=== PATIENT | male | born 1945 | race Caucasian/White ===

== ENCOUNTER 2017-10-09 17:09 | Inpatient (IN) | payer OTHER ==
--- NOTE | 2017-10-09 17:54 | EDPHY ---
H & P Stated Complaint: decreased urine output, confusion per care givers Time Seen by Provider: 10/09/17 17:33 HPI/ROS: CHIEF COMPLAINT: "I'm weak and tired" HISTORY OF PRESENT ILLNESS: The patient is a 72 y/o male with several comorbidities arriving via EMS from an unknown rehabilitation facility complaining of weakness and fatigue for the last 1-2 days. His medical history includes hypertension, diabetes, CHF, chronic UTIs peripheral vascular disease, kidney transplant, and recent aortic valve replacement last month. He does not know why staff at his facility sent him to the ED. He says he can't stand and that his "liver hurts quite a bit." He has some nausea as well. No fever, chills, chest pain, shortness of breath, palpitations, vomiting, diarrhea, urinary complaints, headache, lightheadedness. History from facility staff is not available or known apart from what was told to EMS. REVIEW OF SYSTEMS: Limited due to the patient's skull condition, slight confusion, and poor historian. PAST MEDICAL HISTORY: 1. Hypertension 2. Type II diabetes 3. CHF 4. Peripheral vascular disease 5. Chronic UTIs 6. Aortic valve stenosis 7. Cognitive communication deficit 8. Enterocolitis - C. difficile PAST SURGICAL HISTORY: 1. Kidney transplant 2. Aortic valve replacement 09/10/17 - [facility] in [facility]. SOCIAL HISTORY: Currently staying at unknown rehab facility. Daughter lives in [place]. VITAL SIGNS: Reviewed by me GENERAL: Obese, well-nourished, resting comfortably in no respiratory distress. HEENT: Atraumatic. Eyes: Right eye has conjunctival injection. No icterus. Mouth : dry mucous membranes. No erythema or lesions. Neck: supple with no adenopathy. LUNGS: Clear to auscultation bilaterally, no wheezes, rhonchi or rales. CARDIAC: Distant but regular rate and rhythm, no rubs, murmurs or gallops. ABDOMEN: Multiple bruises along lower abdomen presumably from medication injections. Soft, nontender, nondistended, bowel sounds normal. BACK: No CVA tenderness. EXTREMITIES: No trauma. Trace peripheral edema. Range of motion is normal throughout. NEURO: Alert and oriented x3, but very poor historian. grossly nonfocal. SKIN: Warm and dry, no rash. PSYCHIATRIC: Normal mentation, no agitation. Portions of this note were transcribed by a diagnostic medical sonographer. I personally performed a history, physical exam, medical decision making, and confirmed accuracy of information the transcribed note. - Personal History Current Tetanus Diphtheria and Acellular Pertussis (TDAP): Yes - Medical/Surgical History Hx Asthma: No Hx Chronic Respiratory Disease: No Hx Diabetes: Yes Hx Cardiac Disease: Yes Hx Renal Disease: Yes Hx Cirrhosis: No Hx Alcoholism: No Hx HIV/AIDS: No Hx Splenectomy or Spleen Trauma: No Other PMH: HTN, Type 2 diabetes, kidney transplant, CHF, cognitive communication deficit, dm due to known physiological condition, enterocolitis- r /t C-Diff, PVD, chronic UTI's Aortic Valve stenosis, Heart valve replacement. - Social History Smoking Status: Former smoker Constitutional: Initial Vital Signs Temperature (C) 36.9 C 10/09/17 17:29 Heart Rate 94 10/09/17 17:29 Respiratory Rate 22 H 10/09/17 17:29 Blood Pressure 110/48 L 10/09/17 17:29 O2 Sat (%) 88 L 10/09/17 17:29 O2 Delivery Mode Nasal Cannula O2 (L/minute) 2 Allergies/Adverse Reactions: colchicine Allergy (Verified 10/09/17 17:23) NSAIDS (Non-Steroidal Anti-Inflamma Allergy (Verified 10/09/17 17:23) Home Medications: Medication Instructions Recorded Acetaminophen [Tylenol 325mg (*)] 650 mg PO Q6H PRN 10/09/17 Aspirin EC [Aspirin EC 81 mg (*)] 81 mg PO DAILY 10/09/17 Ipratropium/Albuterol [Duoneb (*)] 3 ml IH Q4H PRN 10/09/17 Losartan Potassium [Cozaar 25 mg 25 mg PO DAILY 10/09/17 (*)] Nystatin Susp [Mycostatin Oral 5 ml PO QID 10/09/17 Liquid] Ondansetron Odt [Zofran Odt 4 mg 4 mg PO Q4H PRN 10/09/17 (*)] QUEtiapine FUMARATE [Seroquel 50 50 mg PO HS 10/09/17 mg (*)] Simethicone [Mylicon] 80 mg PO Q6H PRN 10/09/17 Tacrolimus 0.5 mg PO DAILY 10/09/17 Triamcinolone 0.025% 1 robert TP BID@08,20 10/09/17 [Triamcinolone 0.025% Ointment (*)] traMADol [Ultram 50 mg (*)] 50 mg PO Q6H PRN 10/09/17 Medical Decision Making - Diagnostics EKG Interpretation: 12-LEAD EKG: Please see the full report in Trace Master. My interpretation: Sinus rhythm, right bundle branch and left posterior fascicular block, no ischemic changes Imaging Results: CXR: Impression: Findings consistent with congestive heart failure are noted. Dictated By: Shyam Costa MD CT Abd Pelvis: Impression: 1. Renal transplantation, with marked atrophy of the [place] kidneys. 2. A Mason catheter is in place. 3. Severe arterial calcifications, which may result in flow-limiting stenosis in the iliac vessels. 4. Bilateral pleural effusions and basilar atelectasis/consolidation. 5. Prominent spinal degenerative changes, which may result in spinal canal stenosis. 6. Cholelithiasis, with thickening of the wall of the gallbladder. Cholecystitis cannot be excluded. 7. Enlargement and small pericardial effusion. 8. See above report for additional findings. Results called and discussed with Raina Gleason M.D., on October 09, 2017 at 1934. Dictated By: Shyam Costa MD Imaging: Discussed imaging studies w/ call centre supervisor Radiologist, I viewed and interpreted images myself ED Course/Re-evaluation: This is a 72 y/o male with history of recent valve replacement who presents for 1-2 days of weakness and fatigue. There was some question from the staff that dropped him off that he may have increasing confusion, but he is A&Ox3 here and able to answer most of my questions regarding current symptoms. His abdomen is soft and nontender. He has ecchymosis along his lower abdomen that is likely due to an injected medication. No anticoagulant listed on his med sheet. Plan for IV, labs, UA, flu, EKG, abdominal CT, and chest x-ray. 1L IV NS administered. Mason placed. Patient drained 800mL urine. Creatinine 2.2. Abdominal CT will need to be without contrast. The 12 lead EKG was interpreted by myself. Sinus rhythm with RBBB and LPFB rate 89. See hard copy and/or "tracemaster" electronic copy for interpretation. Chest x-ray shows CHF. Troponin and BNP elevated. 40mg IV Lasix ordered. Procedure: Limited transthoracic echocardiogram. A limited transthoracic echocardiogram was performed and interpreted by myself to evaluate for pericardial effusion. Limited transthoracic echocardiogram: The pericardium was visualized and found to have trace pericardial fluid. The procedure was interpreted and performed by myself, Dr. Gleason. Abdominal CT: large bilateral pleural effusions, CHF, large gallstones, kidney non-obstructed, bad arthrosclerotic disease including both iliacs. Spoke with hospitalist service. Dr. Sauceda accepts admission. Patient's daughter presented emergency department just as the patient was being admitted. I did discuss with her the patient's presentation and our findings thus far. She understands the importance of close observation in the hospital, our concerns regarding the patient's slightly elevated troponin, presumably worsening congestive heart failure, and the potential for a infectious source, especially in this patient who is immunocompromised with kidney transplant. Differential Diagnosis: Differential diagnoses for the patient's symptom complex of weakness and confusion was considered including but not limited to urinary tract infection, urosepsis, pneumonia, influenza, congestive failure, hypoxia, cardiac dysrhythmias, acute coronary syndrome. Consult/Admit Bed Type: Dr. Sauceda, U - Data Points Laboratory Results: Laboratory Results 10/09/17 18:05 10/09/17 18:05 Medications Given: Acetaminophen (Tylenol) 650 mg PO Q4HRS PRN PRN Reason: Pain, Mild/Fever, Can Take PO Stop: 04/07/18 23:16 Last Admin: 10/10/17 21:27 Dose: 650 mg Artificial Tears (Natural Balance Tears) 1 drop EACHEYE Q1HR PRN PRN Reason: Dry Irritated Eyes Stop: 04/08/18 01:42 Last Admin: 10/10/17 18:14 Dose: 1 drop Aspirin Buffered (Aspirin Ec) 81 mg PO DAILY [facility] Stop: 04/08/18 08:59 Last Admin: 10/10/17 11:35 Dose: 81 mg Enoxaparin Sodium (Lovenox) 40 mg SC DAILY [facility] Stop: 04/08/18 14:29 Last Admin: 10/10/17 15:00 Dose: 40 mg Piperacillin/Tazobactam/Dextrose (Zosyn 3.375 Gm (Premix)) 50 mls @ 100 mls/hr IV Q6H [facility] PRN Reason: Protocol Stop: 11/09/17 04:59 Last Admin: 10/10/17 23:04 Dose: 50 mls Sodium Chloride (Ns) 1,000 mls @ 75 mls/hr IV CONT [facility] Stop: 10/12/17 03:34 Last Admin: 10/10/17 22:00 Dose: 1,000 mls Metronidazole (Flagyl) 500 mg PO Q8HRS JEANINE PRN Reason: Protocol Stop: 11/09/17 01:44 Last Admin: 10/10/17 18:03 Dose: 500 mg Nystatin (Mycostatin Oral Liquid) 500,000 unit PO QID [facility] Stop: 04/08/18 01:59 Last Admin: 10/10/17 22:00 Dose: 500,000 unit Ondansetron HCl (Zofran) 4 mg IVP Q4HRS PRN PRN Reason: Nausea/Vomiting, Can't Take PO Stop: 04/07/18 23:16 Last Admin: 10/10/17 14:39 Dose: 4 mg Quetiapine Fumarate (Seroquel) 50 mg PO HS [facility] Stop: 04/08/18 20:59 Last Admin: 10/10/17 21:27 Dose: 50 mg Tacrolimus (Prograf) 0.5 mg PO DAILY [facility] Stop: 04/08/18 08:59 Last Admin: 10/10/17 11:35 Dose: 0.5 mg Tramadol HCl (Ultram) 50 mg PO Q6H PRN PRN Reason: Pain, Moderate Stop: 04/08/18 01:41 Last Admin: 10/10/17 19:43 Dose: 50 mg Triamcinolone (Triamcinolone 0.025%) 1 robert TP BID@08,20 [facility] Stop: 04/08/18 07:59 Last Admin: 10/10/17 23:03 Dose: Not Given Discontinued Medications Furosemide (Lasix Injection) 20 mg IVP ONCE ONE Stop: 10/10/17 01:08 Last Admin: 10/10/17 02:24 Dose: 20 mg Sodium Chloride (Ns) 1,000 mls @ 0 mls/hr IV ONCE ONE; Wide Open PRN Reason: Protocol Stop: 10/09/17 18:09 Last Admin: 10/09/17 18:29 Dose: 1,000 mls Sodium Chloride (Ns) 1,000 mls @ 0 mls/hr IV ONCE ONE PRN Reason: Wide Open Stop: 10/09/17 19:08 Last Admin: 10/09/17 19:08 Dose: 1,000 mls Departure - Departure Disposition: [facility] Inpatient Acute Clinical Impression: Urinary retention, Elevated troponin, Bilateral pleural effusion, Renal insufficiency CHF (congestive heart failure) Qualifiers: Congestive heart failure type: unspecified Congestive heart failure chronicity : unspecified Qualified Code(s): I50.9 - Heart failure, unspecified Condition: Fair Report Scribed for: Raina Gleason Report Scribed by: Emily Shah Date of Report: 10/09/17 Time of Report: 18:03
[2017-10-09] MEDS ORDERED: NS 1,000 ML IV ONE ×2 (18:08→19:07)
[2017-10-09 18:23] LABS: PLATELET COUNT 142 10^3/uL (150-400)
--- NOTE | 2017-10-09 18:32 | CPEKG ---
Heart Rate: 89 RR Interval: 674 P-R Interval: 192 QRSD Interval: 164 QT Interval: 400 QTC Interval: 487 P Highland: 56 QRS Highland: 105 T Wave Highland: -86 EKG Severity - ABNORMAL ECG - EKG Impression: SINUS RHYTHM EKG Impression: RBBB AND LPFB Electronically Signed By: Raina Gleason 09-Oct-2017 21:58:20
[2017-10-09 22:12] LABS: INR 1.17 (0.83-1.16); PROTIME(PATIENT) 15.1 SEC (12.0-15.0)
[2017-10-09] MEDS ORDERED: ACETAMINOPHEN 325 MG TAB PO PRN (23:17)
[2017-10-09] MEDS ORDERED: ONDANSETRON 4 MG/2 ML VIAL IVP PRN (23:17)
[2017-10-10] MEDS ORDERED: FUROSEMIDE 20 MG/2 ML VIAL IVP ONE (01:07)
[2017-10-10] MEDS ORDERED: IPRATROPIUM/ALBUTEROL 3 ML DEYVIAL IH PRN (01:42)
[2017-10-10] MEDS ORDERED: SIMETHICONE 80 MG TAB CHEW PO PRN (01:42)
[2017-10-10] MEDS: NYSTATIN SUSP 500000 UNIT/5 ML UDCUP PO SCH ×6 (02:23→22:00)
[2017-10-10] MEDS: metroNIDAZOLE 500 MG TAB PO SCH ×5 (02:24→23:54)
[2017-10-10 04:45] LABS: INR 1.24 (0.83-1.16); PROTIME(PATIENT) 15.8 SEC (12.0-15.0)
[2017-10-10 04:48] LABS: PLATELET COUNT 119 10^3/uL (150-400)
--- NOTE | 2017-10-10 06:15 | GHP ---
[f rep st] HISTORY AND PHYSICAL DATE OF ADMISSION: 10/09/2017 SOURCE: Patient is a very limited historian with recent history of some confusion. EMR was reviewed and case discussed with accepting provider. The patient's daughter had left for the evening at the time of my interview. CHIEF COMPLAINT: Fatigue, confusion for 1-2 days. HISTORY OF PRESENT ILLNESS: This is a very pleasant 72-year-old gentleman with past medical history significant for CHF, peripheral vascular disease, diabetes type 2, kidney transplant, on immunosuppressive therapy and a recent hospital stay in [place], status post TAVR with subsequent development of C difficile and recurrent UTIs, and diabetes mellitus, who presents to the emergency department from his custodial facility at [facility] with concerns for worsening fatigue and confusion for the past several days. Patient was recently transferred from [place] to [facility] to be closer to his daughter, who lives here in [place]. The patient is originally from [place], and subsequently underwent TAVR. Since that time, has had progressive generalized weakness and poor overall recovery, but in the last 1-2 days has been increasingly confused and worsening generalized weakness and fatigue. The patient does report that he has had some fevers and sweats, but no chills. He has not had any nausea. He denies any shortness of breath. He does report that he has had a cough that is nonproductive. No headache. No chest pain. He has been on Flagyl for his diagnosis of C difficile. He denies any abdominal pain or current diarrhea. The patient denies any sore throat. No current rhinorrhea, some cough, shortness of breath with exertion was reported earlier, but at time of interview, patient denies. On Sunday, patient did have a fever at his facility, but nothing is noted since that time. REVIEW OF SYSTEMS: Negative except as noted in HPI. ALLERGIES: Colchicine and NSAIDs. HOME MEDICATIONS: As per [facility] med rec, Zofran ODT 4 mg p.o. q.4 hours p.r.n., aspirin 81 mg p.o. daily, Tylenol 650 mg p.o. q.6 hours p.r.n., tramadol 50 mg p.o. q.6 p.r.n., simethicone 80 mg p.o. q.6 hours p.r.n., DuoNeb 3 mL inhaled q.4 hours p.r.n., nystatin oral liquid 5 mL p.o. q.i.d., Triamcinolone 0.025 topical ointment twice daily, tacrolimus 0.5 mg p.o. daily, Seroquel 5 mg p.o. at h.s., losartan 25 mg p.o. daily. PAST MEDICAL HISTORY: Significant for a kidney transplant on immunosuppressive therapy with tacrolimus, TAVR on 09/12/2017, CHF, NOS, UTIs, PVD, diabetes type 2, history of recent C difficile on Flagyl. PAST SURGICAL HISTORY: Significant for kidney transplant, TAVR, and back surgery. FAMILY HISTORY: Older brother in his 80s with sudden . Mother also in her 80s with sudden . SOCIAL HISTORY: Patient is currently in [facility], moved from [place] to [place] for TAVR with subsequent transfer for rehab in [place] where patient's daughter resides. Patient quit smoking some time ago. He does not drink or do drugs. CODE STATUS: At this time is full. Given patient's confusion and no MOLST form accompanying the patient, we will have to wait until we further discuss with patient's daughter. PHYSICAL EXAMINATION: VITAL SIGNS: Upon arrival, blood pressure 110/48, heart rate 94, respiratory rate 22, O2 sat 88% on room air with a temperature of 36.9. Vitals available at the time of interview, blood pressure 117/56, heart rate was 88, respiratory rate 16, O2 sat is 97% on 3 L by nasal cannula with a temperature of 36.6. GENERAL: No acute distress, pleasant, frail, chronically ill-appearing gentleman, appears older than stated age, who is lying quietly in bed. Overall, patient does appear to be generally deconditioned. He is quite edematous in all his extremities, abdomen and scrotum. SKIN: The patient does have some slight ulcerated macerated skin located surrounding his coccyx. His skin otherwise appears to be intact with occasional bruising on his upper extremities. ENT: Mucous membranes appear dry. Dentition fair. No oropharyngeal erythema or exudate appreciated. EYES: Without any scleral icterus or conjunctival injection, decreased reactivity to light bilaterally in the pupils. Extraocular muscles grossly intact. Patient with some difficulty following instructions. CV: Regular rate and rhythm. Very distant heart sounds, but regular. Limited exam to appreciate any murmurs secondary to distant heart sounds. RESPIRATORY: Unlabored breathing, significantly diminished bibasilarly. No rhonchi or wheezing appreciated. ABDOMEN: Obese, soft. Patient without any tenderness to palpation. No rebound, guarding or masses. : Patient with significant scrotal edema bilaterally. A Mason catheter is in place. EXTREMITIES: Patient with 2 to 3+ pitting edema bilateral lower and upper extremities. Patient with obese abdomen and scrotal edema. He has generalized weakness with limited abilities to lift his lower or upper extremity significantly. NEURO: Grossly nonfocal. Moves all extremities with generalized deconditioning, weakness. No facial drooping. No other focal findings. PSYCH: Patient with some confusion. The patient is oriented to person and place, but he is overall a very poor historian. He is not totally aware of all his medical issues, and is unsure of why he is currently in the hospital. LABORATORY STUDIES: WBC 4.54, H and H is 9.6 and 31.4, MCV of 92.4, platelet count is 142. PT is 15.1, INR is 1.17, PTT is 36.0. Lactic acid 2.6, decreased to 1.2. Sodium is 130, potassium is 4.5, chloride 96, CO2 is 22, anion gap 12, BUN 67, creatinine is 1.9, GFR of 35, glucose 189, calcium is 8.1, total bilirubin 0.5. ALT 727, AST is 19, alkaline phosphatase is 58. Troponin 0.056, repeated is 0.051 with a normal CK and CK-MB. BTNP is 3550. Total protein is 4.5, albumin is 2.3, lipase 396. TSH is 4.86 and procalcitonin 0.21. UA with specific gravity of 1.014, pH of 5.0, 1+ blood, trace leuk esterase, hyaline casts 50-182 , noted 1-3 of WBCs. Flu PCR is negative for A and B. EKG reviewed myself shows normal sinus rhythm in the 80s with a right bundle branch block. QTc is 487. Chest x-ray: Image report reviewed myself showing cardiomegaly and pulmonary venous congestion. Perihilar opacities and postop changes of valvular replacement. Bilateral pleural effusions. Degenerative changes in the spine. CT abdomen pelvis, status post renal transplant and atrophied [place] kidneys. Severe arterial calcifications in the iliac vessels. Bilateral pleural effusions. Basilar atelectasis and consolidation. Prominent spinal degenerative changes. Cholelithiasis with thickening of the wall of the gallbladder, cholecystitis cannot be excluded. Small pericardial effusion. ASSESSMENT AND PLAN: Pleasant 72-year-old gentleman with past medical history of multiple medical issues including diabetes with history of kidney disease status post transplant on immunosuppressive therapy, status post a recent transcatheter aortic valve replacement in August, heart failure, known pleural effusions, peripheral vascular disease, and recent development of Clostridium difficile on Flagyl, who presents to the emergency department with complaints of progressive fatigue, confusion for the last several days along with a cough and shortness of breath. 1. Congestive heart failure, not otherwise specified, decompensated with pleural effusion, significant edema and nearly anasarca. Patient's initial concern was for infectious process ongoing. He did receive 2 L of IV fluid in the emergency department. Now, will try to diurese effectively while monitoring renal function closely. Echocardiogram was obtained stat for pericardial effusion. There is no evidence of tamponade. Will monitor closely and continue diuresis. 2. Confusion/altered mental status, baseline mentation is unknown at this time , possibly related to encephalopathy either from decompensated congestive heart failure, hypoxia, infectious process. Will need to further discuss with daughter if patient with any known history of memory decline, but appears that this is more acute in nature. Overall patient is a poor historian. 3. Generalized weakness and debility. Physical therapy/occupational therapy consultation. Diuresis as above. Antibiotic coverage as noted below. also noting gallbladder thickening cannot r/o cholecystitis on CT. check RUQ US. neg Jon's sign. 4. Hypoxia. The patient does have bilateral pleural effusions, not surprising status post a transcatheter aortic valve replacement , but he is also significantly elevated, likely related to patient's congestive heart failure for which he is getting diuresed. The patient is requiring currently some supplemental oxygen. We will continue with diuresis. Repeat chest x-ray in the morning and titrate oxygen as tolerated. 5. Bilateral pleural effusions. Suspect related to congestive heart failure versus pneumonia. The patient did order procalcitonin, which is slightly elevated. Patient without a white count, however, he is immunocompromised on tacrolimus for history of renal transplant. We will go ahead and initiate antibiotic therapy with Zosyn pending blood cultures. 6. Pericardial effusion is small. No evidence of tamponade. Echocardiogram report is pending as above. 7. Elevated troponin is likely related to patient's congestive heart failure exacerbation, serial cardiac enzymes and EKG. Patient denies any chest pain at this time. Will monitor on telemetry. 8. Hypoalbuminemia, secondary to congestive heart failure and patient's chronic medical status. We will continue to monitor. 9. Anasarca. Continue Lasix. Patient may benefit from albumin, followed by Lasix during his stay, at this time monitor acutely. 10. Acute kidney injury. Patient's baseline is unknown at this time. Patient' s daughter may have some outside records available. We will try to obtain from [place] with recent transcatheter aortic valve replacement .. 11. Hypochloridemia, mild in setting of hyponatremia. 12. Hyponatremia secondary to hypervolemia with patient's extensive edema and congestive heart failure exacerbation. Will monitor with diuresis. 13. Hypocalcemia appears to correct for hypoalbuminemia. We will monitor closely. 14. Elevated lactate has normalized. The patient is status post 2 L of IV fluid. Suspect there is increased stress in setting of congestive heart failure and hypoxia with the development of bilateral pleural effusions. 15. Anemia, status post transcatheter aortic valve replacement . Patient's baseline is unknown. He does not appear to have any active bleeding. Will monitor hemoglobin and hematocrit at this time. Blood pressures are acceptable. 16. Thrombocytopenia, likely related to patient's chronic and acute illness. At this time, will monitor closely. The patient is high risk for pulmonary embolism, deep venous thrombosis. He will receive prophylactic dosing and will need to monitor platelet count closely. 17. Abnormal urinalysis with leukocytosis without any bacteria noted. However , patient is immunosuppressed. We will plan to send that for culture. 18. Urinary retention. The patient did require placement of Mason catheter. He will be diuresed. Will monitor ins and outs closely, and he will be placed on fluid restriction as above. 19. Fluid, electrolyte, nutrition. Cardiac diet with low sodium. The patient will be saline locked. No further IV fluids at this time. Electrolytes will be monitored and replaced as needed. 20. Prophylaxis. Patient with bilateral lower extremity edema. Sequential compression devices if tolerated and Lovenox has been ordered as noted above. 21. Code status is full at this time. We will need to further discuss when patient's daughter is available. 22. Disposition. Patient has been admitted to telemetry unit inpatient status. Anticipate greater than 2 midnights stay in setting of patient's multiple medical issues, complications, and significant debility. /[id number]/MODL MTDD
[2017-10-10] MEDS: PIPERACILLIN/TAZO 3.375 GM/DEX 50 ML IV SCH ×4 (06:32→23:04)
--- NOTE | 2017-10-10 08:11 | ECHO ---
[email or web address] [address] Main: [phone] Fax: Transthoracic Echocardiogram Name: SANKET DIGGS MR#: [id number] Study Date: 10/09/2017 Study Time: 08:18 PM Date of : 1945 Age: 72 year(s) Height: 175.3 cm (69 in.) Weight: 91.63 kg (202 lb.) BSA: 2.07 m2 Gender: Male Examination: Echo Indication: S/P recent minimally invasive AVR, no CABG, done in outside hospital, confusion and elevated troponin Image Quality: Technically Difficult Contrast: Requested by: Raina Gleason BP: 126 mmHg/62 mmHg Heart Rate: Rhythm: Indication: S/P recent minimally invasive AVR, no CABG, done in outside hospital, confusion and elevated troponin Procedure Staff Loading Dock Helper: Izabela Crouch Reading Physician: Elan Koo Requesting Provider: Conclusions: Moderate concentric LV hypertrophy. Low normal left ventricular systolic function. The ejection fraction is estimated to be 50-55 %. There is moderate thickening of the mitral valve leaflets. Moderate-severe mitral annular calcification. Mild mitral valve stenosis is present. The aortic valve is a bioprosthesis. Prosthetic aortic valve gradients are within normal limits. No prosthesis regurgitation. Measurements: Chambers Valvular Assessment AV/MV Valvular Assessment TV/PV Normal Normal Normal Name Value Range Name Value Range Name Value Range Ao Guerita (MM): 3.3 cm (2.2 cm-3.7 AV Vmax: 2.07 m/s (1 m/s-1.7 PV Vmax: 1.17 m/s (0.6 m/s-0.9 cm) m/s) m/s) IVSd (2D): 1.5 cm (0.6 cm-1.1 AV maxP mmHg ( - ) PV PGmax: 5 mmHg ( - ) cm) AV meanP mmHg ( - ) LVDd (2D): 5.0 cm (4.2 cm-5.9 LVOT Vmax: 0.99 m/s (0.7 m/s-1.1 cm) m/s) LVDs (2D): 3.4 cm (2.1 cm-4 MV maxP mmHg ( - ) cm) MV meanP mmHg ( - ) LVPWd (2D): 1.4 cm (0.6 cm-1 cm) EF Range: 50-55 % RVDd(2D): 3.8 cm (1.9 cm-3.8 cmmm) Continued Measurements: Patient: SANKET DIGGS Study Date: 10/09/2017 Page 1 of 2 08:18 PM Valvular Assessment AV/MV Name Value MV VTI: 45.20 cm Findings: Left Ventricle: Normal size left ventricle. Moderate concentric LV hypertrophy. Low normal left ventricular systolic function. The ejection fraction is estimated to be 50-55 %. Right Ventricle: Normal size right ventricle. Normal RV function. Left Atrium: The left atrium is mildly dilated. Right Atrium: The right atrium is normal in size. Mitral Valve: There is moderate thickening of the mitral valve leaflets. Moderate-severe mitral annular calcification. Mild mitral valve stenosis is present. Trivial mitral valve regurgitation. Aortic Valve: The aortic valve is a bioprosthesis. The prosthetic aortic valve is normal. Prosthetic aortic valve gradients are within normal limits. No prosthesis regurgitation. Tricuspid Valve: The tricuspid valve appears normal. Trivial tricuspid valve regurgitation. Pulmonary artery pressure is not obtained due to inadequate TR jet. Pulmonic Valve: Pulmonary valve not well visualized. Aorta: Normal size aortic root measuring 3.3 cm. IVC: The IVC is normal sized. Pericardium: No pericardial effusion. (No Signature Object) Patient: SANKET DIGGS Study Date: 10/09/2017 Page 2 of 2 08:18 PM [id number]
[2017-10-10] MEDS ORDERED: LOSARTAN POTASSIUM 25 MG TAB PO SCH (09:00)
--- NOTE | 2017-10-10 10:04 | ASMTCASEMG ---
Living Arrangements What is your living Answers: With Child(gracie) arrangement? Who do you live with? Type Of Residence What kind of residence do Answers: [facility] Facility you live in? Type of Residence Facility Name Notes: [facility] Discharge Plan Comments Coordination Status Comments Notes: Pt is a 72 y/o man admitted for fatigue and confusion for 1-2 days. Pt is a post TAVR after a recent hospitalization in [place]. Pt came to [place] to be closer to his daughter. Pt is currently rehabing at [facility]. Therapies have been ordered. Pt will most likely return to [facility]. CM to follow. Plan: [facility] Date Signed: 10/10/2017 10:03 AM Electronically Signed By:BARBARA Dailey
[2017-10-10] MEDS: TACROLIMUS ANHYDROUS 0.5 MG CAP PO SCH (11:35)
[2017-10-10] MEDS: ASPIRIN EC 81 MG TAB PO SCH (11:35)
[2017-10-10] MEDS: TEARS/DEXTRAN 70/HYPROMELLOSE 15 ML OPHT.BTL EACHEYE PRN ×3 (11:45→18:14)
--- NOTE | 2017-10-10 12:16 | PDMN ---
Medical Necessity Medical necessity: Pt meets IP criteria per MD; est los >2 mn for eval/tx of CHF decompensated w/ bilateral pleural effusions, edema, anasarca, altered mental status, significant debility/weakness, hypoxia, acute kidney injury, elevated troponin/abnormal labs & abnormal urinalysis; admit for further workup/ close monitoring, diuresis, IV abx & therapies; hx recent TAVR w/subsequent CDIFF, UTIs, CHF, PVD, diabetes & kidney transplant on immunosuppressive therapy ; per H&P & order 10/09/17
--- NOTE | 2017-10-10 13:24 | WOCRNPDOC ---
WOCRN Advanced Assessment Note - Skin Integrity Problem, Advanced Assess Left Sacrum Proximal Pressure Injury Dressing Type: Allevyn Life Dressing Description: Clean/Dry, Intact Exudate Amount: Scant Exudate Characteristic(s): Serosanguinous Integumentary Issue Intervention: Visualized Under Dressing Wound Bed Constitution: Red/[place] - Non Granular Tissue Site Measurement - Head-to-Toe Length X Width X Depth (cm): 1x1x0.3 Pressure Injury Stage: Stage 3 Pressure Injury Present on Admit: Yes Left Distal Sacrum Pressure Injury Dressing Type: Allevyn Life Dressing Description: Clean/Dry, Intact Integumentary Issue Intervention: Visualized Under Dressing Site Measurement - Head-to-Toe Length X Width X Depth (cm): 0.5x1x0.2 Pressure Injury Stage: Stage 3 Pressure Injury Present on Admit: Yes Right Sacrum Pressure Injury Dressing Type: Allevyn Life Dressing Description: Clean/Dry, Intact Exudate Amount: Minimal Exudate Characteristic(s): Serosanguinous Integumentary Issue Intervention: Visualized Under Dressing Rosa Wound Tissue: Erythema, Macerated (severe ) Rosa Wound Swelling: Mild Wound Bed Constitution: Granulation Tissue (50%), Red/[place] - Non Granular Tissue (50%) Wound Edges: Irregular, Thick Site Measurement - Head-to-Toe Length X Width X Depth (cm): 4.5x1.5x0.3 Pressure Injury Stage: Stage 3 Pressure Injury Present on Admit: Yes Skin Integrity Problem Comment: Breakdown from friction/moisture and pressure. Likely from recliner. Discussed pressure injury causes and treatment with daughter. Will try aquacel dressing for sacrum to reduce moisture breakdown of rosa wound skin.
--- NOTE | 2017-10-10 14:18 | HOSPPROG ---
Hospitalist Progress Note Assessment/Plan: New patient encounter Notified of pt's BP in the 80's systolic No Fever The pt is a very poor historian Mason in place and there is concentrated urine in the bag PC: 0.21 #?Sepsis, unclear source, ?Pneumonia vs ?UTI -No leukocytosis -mild elevation of procalcitonin in setting of renal impairment #Hx of CHF, recent TAVR, small pericardial effusion -reportedly in exacerbation on admission, but I don't see e/o this, looks very dry #Acute Renal Failure -unknown baseline #Immunosuppression #Hyponatremia #Kidney transplant #Recent C-Diff colitis, no active diarrhea -On Flagyl #DMII, NIDDM #cholelithiasis and thickened GB on CT. -RUQ US pending -Negative hutchins's and negative exam #Thrombocytopenia #Coccygeal wound #Acute on chronic encephalopathy Plan: -Stat IV Bolus now and will determine clinical response -Cont Zosyn which was started on 10/09. May need additional coverage pending clinical course. -Will consult Cardiology -Tacrolimus was continued on admission. Will consult Nephrology -Urine studies -Wound care -Palliative care consult -[facility] -Full code for now, although daughter thinks he is a DNR. She is obtaining records total critical care time is 45 minutes including coordination with nursing and the pt's daughter. Subjective: confused. Denies SOB, denies CP. Denies pain. Answers yes and no questions Objective: Vital Signs Temp Pulse Resp BP Pulse Ox 36.9 C 99 22 H 120/47 L 90 L 10/10/17 11:46 10/10/17 13:10 10/10/17 13:10 10/10/17 13:10 10/10/17 13:10 Laboratory Results 10/10/17 03:35 10/10/17 03:35 10/09/17 10/10/17 10/11/17 05:59 05:59 05:59 Intake Total 2075 150 Output Total 900 Balance 2075 -750 PT 15.8 SEC (12.0-15.0) H 10/10/17 03:35 INR 1.24 (0.83-1.16) H 10/10/17 03:35 - Physical Exam Constitutional: no apparent distress Eyes: PERRL, EOMI Ears, Nose, Mouth, Throat: moist mucous membranes, dry mucous membranes Cardiovascular: edema (trace) Respiratory: reduced air movement Gastrointestinal: normoactive bowel sounds, soft, non-tender abdomen Genitourinary: no bladder fullness Skin: warm Musculoskeletal: generalized weakness Neurologic: No AAOx3 Psychiatric: encephalopathic, anxious, poor insight, No interacting appropriately, No not anxious, No not encephalopathic, No thought process linear Lymph, Heme, Immunologic: No petechiae ICD10 Worksheet Patient Problems: Problems Problem Status Onset Bilateral pleural effusion Acute CHF (congestive heart failure) Acute Elevated troponin Acute Renal insufficiency Acute Urinary retention Acute chronic disease mgmt/transitional Acute
[2017-10-10] MEDS: ENOXAPARIN 40 MG/0.4 ML SYR SC SCH (15:00)
--- NOTE | 2017-10-10 15:19 | ASMTCMCOM ---
CM Note CM Note Notes: CM met w/ daughter, Adri and discuss d/c POC. Adri would like pt to return back to [facility]. Adri reports that they are in the process of applying for LTC Medicaid. Adri reports that the [place] [facility] is to have pt at [facility]. CM spoke w/ Subha at [facility] and pt is able to return when medically stable. CM sent updates to [facility]. CM left a msg w/ Caitlyn, social work job titles at [facility] and inquired about LTC Medicaid application process. CM spoke w/ Caitlyn and she reports that Adri is in the process of completing LTC Medicaid application. CM requested [employer] to assist in completing the LTC Medicaid application. Palliative has been ordered. CM to follow. Date Signed: 10/10/2017 03:18 PM Electronically Signed By:BARBARA Dailey
--- NOTE | 2017-10-10 18:08 | GCON ---
[f rep st] CONSULTATION CHIEF COMPLAINT: Weakness. HISTORY OF PRESENT ILLNESS: The patient was admitted to the hospital last night in transfer from a [facility]. He had the misfortune of being in a custodial after a recent aortic valve replacement that was don e percutaneously and they thought that he was being somewhat confused, he was more tired and they bro ught him in here to be evaluated. He has many major cardiovascular, renal and metabolic issues. He has been at [facility] since he had a TAVR in [place] in the middle part of August. He has been weak. He has been tired. He cannot get up out of bed. He has severe bedsores that are ve ry painful on his coccyx. He says he does not have chest pain or shortness of breath. He does say that he has a phlegm product alan type cough. He denies nausea, vomiting, diarrhea, or constipation. He lies flat and does not wake up short of br eath at night. He has peripheral edema that is significant but it is markedly decreased from prior t o his TAVR. He feels very, very tired. He has not had trouble with his vision at this time. He is not lighthead ed or dizzy. Does not have pleuritic chest pain. He has known cardiac risk factors of hypertension, diabetes mellitus, hyperuricemia, and obesity. He has no family history of coronary artery disease that is premature. He has no history of coronary artery disease himself. He has no history of hyperlipidemia, according to him. FAMILY HISTORY: He has no family history of premature coronary disease. No family history of unexpl ained sudden at a young age. REVIEW OF SYSTEMS: A 10-point review of systems negative except as noted above in the chart and on t he record. The patient has a history of hypertension, diabetes mellitus, renal failure, transplant o f a kidney, hyperuricemia, obesity, fatigue, C difficile, history of CHF prior to the TAVR. ALLERGIES: Nonsteroidals and colchicine. MEDICATIONS: Seroquel, triamcinolone, losartan, nystatin, Tylenol, tramadol, simethicone, aspirin, Z ofran. The patient had a kidney transplant and he is on immunosuppressive therapy with tacrolimus. He has a history of a TAVR 09/12/2017. He has had multiple urinary tract infections since then. PAST SURGICAL HISTORY: 1. Status post kidney transplant. 2. Status post TAVR. 3. Status post back surgery. SOCIAL HISTORY: The gentleman lives in [place], [place]. He has been in [place] for 12 years. 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 He does not smoke. He does not drink significant amounts of alcohol. After his TAVR, he went to [facility] and that is why he is transferred to [facility] . He was born in [place], [place]. He has recently done work in [employer] for [employer]. He lives alone. He has been in [place] for 12 years and he is down in [place]. He does not sm sumi, does not drink significant amounts of alcohol. PHYSICAL EXAMINATION: VITAL SIGNS: Blood pressure 105/70, heart rate 66, respiratory rate 14. HEEN T: Pupils equal and reactive. Mucous membranes of the mouth moist. NECK: Supple. CARDIOVASCULAR: S1, S2. Soft systolic murmur in the left sternal border. No diastolic murmur. No S3, no S4. No rubs. PULMONARY: Rhonchi, decreased breath sounds bilaterally and increased AP diameter. ABDOMEN: Soft, nontender without masses. Sacrum with ulcers that are described. EXTREMITIES: He has 2+ alejandrina ma bilaterally to the mid calves and this is nontender. SKIN: Pallor and age-related changes. PSYC H: No obvious anxiety or depression. LABORATORY DATA: Sodium 130, potassium 4.5, chloride 96, CO2 22, creatinine 1.9. TSH 4.8. Sinus rhythm, right bundle branch block on his EKG. He did have a chest CT of the abdomen and pelvis, which showed status post renal transplant and atrop hy to [place] kidney, severe arterial calcifications in the iliac vessels, bilateral effusions, bibasi lar atelectasis and consolidation, prominent spinal degenerative changes, cholelithiasis with thicken ing of the wall of the gallbladder, cholecystitis cannot be excluded, small pericardial effusion. ASSESSMENT AND PLAN: 1. Status post transcatheter aortic valve replacement (TAVR). His valve appears to be working well and will get an echocardiogram and follow this closely. There is nothing to suggest he has developed endocarditis, nothing to suggest severe insufficiency or anything but excellent performance from his valve. 2. Hypoxia. 3. Pleural effusions. 4. Pericardial effusion. 5. Anasarca. 6. Peripheral edema. I think that the patient is clearly showing that he has both significant pulmonary and cardiovascular issues at this time. We will check for his valve and make sure it is functioning well. He did have an elevation of troponin and that may well be just from his fluid overload at this time. He has some anasarca. He is on Lasix. He has significant peripheral edema. He is on Lasix and will follow that carefully. He has anemia and thrombocytopenia. He has had problems with urinary retention in the past. We will watch for this. He has had an acute kidney injury at this point and we are just going to have to watch him carefully for that. In summary, will make sure that his valve seems to be working. Why he is so tired and fatigued, I do not have a clear answer. I do not think it is endocarditis at this time. I do not think it is a si gnificant deterioration of his valvular or left ventricular function. /[id number]/MODL
[2017-10-10] MEDS: traMADol 50 MG TAB PO PRN (19:43)
--- NOTE | 2017-10-10 21:24 | GCON ---
[f rep st] CONSULTATION INFECTIOUS DISEASE CONSULTATION DATE OF CONSULTATION: 10/10/2017 REFERRING PHYSICIAN: Medhat Kingston MD REQUESTING PROVIDER: Medhat Kingston MD. REASON FOR CONSULTATION: Possible sepsis. HISTORY OF PRESENT ILLNESS: The patient is a 72-year-old male with a past medical history of renal t ransplantation in 2004, type 2 diabetes mellitus, and recent TAVR in [place]. I am asked to see him in consultation for possible sepsis. The patient underwent TAVR in [place] on . His daughter describes that he had a prolonged ICU course of approximately 2 weeks requir ing mechanical ventilation. His hospital course was also complicated by development of C. difficile colitis and urinary tract infection. He subsequently has been discharged to [facility] for [facility], given this is closer to his daughter who lives in [place]. The patient reportedly developed a fever yesterday to 100.3 at his shelter facility. This was associated with increased confus ion and lethargy. The patient describes having some lower abdominal pain, which he notes has been pr esent since the time of his recent surgery. He does have some underlying cough, but does not note sh ortness of breath. He denies any active nausea, vomiting, or diarrhea, although notes he had 1 day o f vomiting at his shelter facility recently. He has not noted any skin rash. He does have s ome sacral skin breakdown present. He also has been noted to have a left heel ulceration. At the ti me of presentation, patient was noted to have a white blood cell count of 4.5 without significant lef t shift. The patient was started empirically on Zosyn given the presence of fever and unclear etiolo gy for symptomatology. He has been maintained on oral metronidazole, which he was receiving for C. d ifficile. Earlier today, the patient was noted to have some hypotension prompting additional concern s for sepsis with systolic blood pressures transiently in the 80 range. These have now all resolved. The patient's daughter notes that with prior urinary tract infections he typically becomes signific antly confused and has additional symptoms, such as hallucinations, which have not been present. His daughter notes that at [facility] he did not have an indwelling Mason catheter, but required this to be placed upon hospitalization. Testing for influenza was negative. Given the above findings, I am now asked to assist in his ongoing management. PAST MEDICAL HISTORY: Renal transplantation in 2004, which was performed in [place]; reason for gracie al failure, diabetes mellitus, peripheral vascular disease, urinary tract infection, congestive heart failure, and C. difficile colitis as outlined above. PAST SURGICAL HISTORY: Kidney transplant as above, TAVR, and prior back surgery. CURRENT MEDICATIONS: Zosyn 3.375 g intravenously q.6 hours, DuoNeb q.4 hours as needed, aspirin 81 m g p.o. daily, Lovenox 40 mg subcutaneously daily, metronidazole 500 mg orally q.8 hours, nystatin ora lly 4 times daily, Seroquel 50 mg p.o. at bedtime, tacrolimus 0.5 mg p.o. daily, Ultram 50 mg p.o. q. 6 hours as needed, and triamcinolone cream. ALLERGIES: No known drug allergies, although medical record list colchicine and nonsteroidal agents (query if these are avoided because of renal transplantation). SOCIAL HISTORY: Patient currently is a resident of [facility]. Recent relocation from [facility]. For vanessa smoker. No alcohol or drug use. REVIEW OF SYSTEMS: Outside that noted in the HPI, the remainder of a 10-system review was unremarkab le except for chronic lower extremity edema, chronic right eyelid eversion with erythema, and decubit us ulcers as noted above. PHYSICAL EXAMINATION: VITAL SIGNS: Temperature 36.9, heart rate 98, respiratory rate 26, blood pres sure 130/60, oxygen saturation 96% on 2.5 L. GENERAL: Patient is an obese male in no acute distress . He appears nontoxic. HEENT: There is no scleral icterus or conjunctival petechiae. The right lo wer conjunctival lid is everted with erythema. There is no drainage. There is no nasal discharge. There is no tenderness over the frontal maxillary or mastoid area. NECK: Supple without palpable ly mphadenopathy or thyromegaly. CHEST: Clear to auscultation bilaterally without adventitious sounds. Respiratory effort is normal. CARDIOVASCULAR: Distant heart tones. Surgical scar in left upper c hest shows no erythema or drainage. No audible murmurs are noted. ABDOMEN: Obese, nontender, nondi stended. Bowel sounds are present. MUSCULOSKELETAL: There is 2 to 3+ lower extremity edema bilater ally. Right inguinal region shows a well-healed scar. The hands show changes of gouty arthropathy. SKIN: There is an erythematous plaque with some hyperpigmentation present in the right lower quadran t of the abdomen, as well as ecchymosis in the right inguinal region; 2 discrete sacral decubitus ulc ers are present in the sacral region without surrounding cellulitis or drainage. There are no stigma ta of endocarditis. : Mason catheter is in place. LYMPHATICS: No cervical, supraclavicular or i nguinal nodes palpable. NEUROLOGIC: Patient is alert and interacts appropriately with the examiner. Cranial nerves 2-12 are grossly intact. Sensation is grossly intact. Muscle tone and bulk are nor mal. LABORATORY DATA: White blood cell count 3.9, hematocrit 29.5, platelets 119, neutrophils 61%, lympho cytes 30%. Serum creatinine is 1.7, albumin 2.1, AST 18, ALT 29, alkaline phosphatase 50, bilirubin 0.6, procalcitonin 0.19, TSH 4.9. INR is 1.2. Venous lactate is 1.2. Urinalysis shows 1-3 red bloo d cells and 1-3 white blood cells. Influenza testing by PCR is negative. Blood cultures x2 and urin e culture are pending. CT scan of the abdomen and pelvis show findings consistent with renal transplantation; bilateral pleu ral effusion with basilar atelectasis present. Small pericardial effusion noted. Cholelithiasis wit h gallbladder thickening also present. Abdominal ultrasound shows cholelithiasis with borderline gallbladder wall thickening. Chest x-ray shows changes suggesting congestive heart failure. Echocardiogram shows normal-appearing prosthetic aortic valve with no regurgitation. IMPRESSION: 1. Fever with transient hypotension: Possible clinical findings are due to sepsis, although hypoten elziabeth was transient in nature. Given recent complex medical history, nosocomial processes are of cons ideration. It is possible he had a viral gastroenteritis while at his shelter facility and s ubsequently developed dehydration to account for some of his symptomatology. Urinalysis shows limite d leukocytes, and the patient denies any symptoms of urinary tract infection. Basilar changes in the lungs appear more consistent with compressive atelectasis from pleural effusions than with pneumonia . Given his recent valve surgery, endocarditis is a consideration, although echocardiogram shows no overt abnormalities. Blood cultures are pending to further assess this possibility. 2. Recent Clostridium difficile colitis: No symptoms of active Clostridium difficile on oral metron idazole. Contact precautions will be continued. RECOMMENDATIONS: 1. We will continue empiric Zosyn until blood cultures are more mature. We will decrease to 2.25 g intravenously q.6 hours. 2. Follow up blood and urine culture as available. 3. Follow clinical response to above measures. 4. Continue metronidazole pending further record review, as this may be able to transition to suppre ssive dosing while on antibiotics at twice daily dosing. Of note, would more typically use oral vanc omycin, but will not change at this point in time, given clinical response. Thank you for this consultation. We will continue to follow the patient with you. /[id number]/MODL
[2017-10-10] MEDS: QUEtiapine FUMARATE 50 MG TAB PO SCH (21:27)
[2017-10-10] MEDS: TRIAMCINOLONE 0.025% 15 GM OINTTUBE TP SCH ×2 (22:00→23:03)
[2017-10-10] MEDS: NS 1,000 ML IV SCH (22:00)
[2017-10-11] MEDS: traMADol 50 MG TAB PO PRN ×4 (01:36→23:57)
[2017-10-11] MEDS: PIPERACILLIN/TAZO 3.375 GM/DEX 50 ML IV SCH ×2 (05:29→10:46)
[2017-10-11 05:53] LABS: PLATELET COUNT 121 10^3/uL (150-400)
[2017-10-11] MEDS: metroNIDAZOLE 500 MG TAB PO SCH ×3 (06:26→23:58)
[2017-10-11] MEDS: NYSTATIN SUSP 500000 UNIT/5 ML UDCUP PO SCH ×4 (06:45→23:59)
[2017-10-11] MEDS: predniSONE 10 MG TAB PO SCH (09:57)
[2017-10-11] MEDS: ASPIRIN EC 81 MG TAB PO SCH (09:57)
[2017-10-11] MEDS: TACROLIMUS ANHYDROUS 0.5 MG CAP PO SCH (09:57)
[2017-10-11] MEDS: ENOXAPARIN 40 MG/0.4 ML SYR SC SCH (09:57)
[2017-10-11] MEDS: TRIAMCINOLONE 0.025% 15 GM OINTTUBE TP SCH ×2 (10:07→23:59)
--- NOTE | 2017-10-11 10:40 | GCON ---
[f rep st] CONSULTATION DATE OF CONSULTATION: 10/11/2017 REASON FOR CONSULTATION: Opinion regarding acute kidney injury in a patient with kidney transplant. HISTORY OF PRESENT ILLNESS: The patient is a very pleasant 72-year-old gentleman with end-stage kidn ey failure, presumed due to diabetes mellitus type 2 and hypertension. The patient underwent a live donor kidney transplant about 11 years ago and has been doing well subsequently. However, over the c ourse of the past year or so, he has had increasing fatigue and shortness of breath. He was noted to have aortic valve disease and underwent TAVR in August of 2017. Post TAVR, he moved from [place], [place] to [place] to be closer to his daughter. Over the course of the past couple of days, the p atient complained of weakness and fatigue. He presented to the emergency department on 10/09/2017 wi th the aforementioned complaints. He has been having some difficulties with diarrhea due to Clostrid ium difficile in the recent past. The patient says he is feeling a bit better but still feels weak. He is not having fevers, chills, nausea, vomiting, chest pain, shortness of breath, cough, sputum pr oduction, hemoptysis, hematemesis, epistaxis, blurry vision, double vision, headache, orthopnea, paro xysmal nocturnal dyspnea, palpitations, syncope. He says he does have some difficulty maintaining hi s balance, and he is having some abdominal discomfort. He had an ultrasound of his abdomen done on 10/10, I believe, of his right upper quadrant. It showed some cholelithiasis with borderline gallblad yu wall thickening, and his CT scan of the abdomen and pelvis done on 10/09/2017 showed marked atrop hy of his [place] kidneys. His renal transplant was in the right lower quadrant. There was no hydron ephrosis. He did have severe bilateral arterial calcifications, bilateral pleural effusions, choleli thiasis with a thickened gallbladder wall and a small pericardial effusion. The patient was admitted to the hospital for volume depletion. With IV fluids, his serum creatinine has decreased from 2.2 o n admission. It was 1.7 yesterday and 1.6 this morning, however, his urea nitrogen has stayed in the middle to high 60s, most recently 69. PAST MEDICAL HISTORY: Significant for: 1. Kidney transplantation, he said he traveled to [place] 11 years ago and purchased his kidney fro m a live donor there. 2. Chronic immunosuppression. 3. Status post TAVR in August 2017. 4. History of hypertension. 5. History of diabetes mellitus type 2. 6. Peripheral vascular occlusive disease. 7. History of chronic urinary tract infections. 8. History of Clostridium difficile, treated with Flagyl. ALLERGIES: To nonsteroidals and colchicine. FAMILY HISTORY: Positive for vascular disease and coronary artery disease. SOCIAL HISTORY: He apparently is currently residing at [facility] to be closer to his daughter who li ves in [place] to help recover from his vascular/cardiac surgery (TAVR) in August 2017. 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 He enjoys [employer] cars, he just recently had to sell his [email or web address]. He does not use tobacco. He use d to drink gin but none recently. No IV or recreational drugs. REVIEW OF SYSTEMS: A complete 12-point review of systems was performed with pertinent positives and negatives as per the previous sections. CURRENT MEDICATIONS: Include: 1. Tylenol as necessary. 2. Albuterol as necessary. 3. Aspirin 81 mg a day. 4. Flagyl 500 mg every 8 hours. 5. Zosyn 3.375 g every 6 hours. 6. Seroquel 50 mg at bedtime. 7. Normal saline at 75 cc an hour. 8. Tacrolimus 0.5 mg daily. 9. Ultram 50 mg every 6 hours. 10. Triamcinolone. 11. Losartan, which has been discontinued. Other medications that he seems to be taking would include prednisone 5 mg a day, but it is not on hi s list, and he is not certain if he takes mycophenolate, he said it sounded familiar, but he is not s ure either if he is on it or what his dose would be. PHYSICAL EXAM: VITAL SIGNS: Blood pressure 112/58, pulse 90, respirations 14, temp 36.4. Urine out put 1.8 L, he had 800 cc in his bladder prior to Mason catheter placement. GENERAL: He is awake, al ert, cooperative, moderately ill-appearing, but pleasant. HEENT: Pupils are reactive to light. Ext raocular movements are intact. Mucous membranes are somewhat dry. He has most of his teeth removed. NECK: No lymphadenopathy or thyromegaly. HEART: Regular. No rub. No S3. He has grade 2/6 syst olic murmur. LUNGS: No rhonchi or wheezes. Occasional rales in his bases. ABDOMEN: Bowel sounds are positive. Soft, nontender, nondistended. He has a transplant in his right lower quadrant that i s nontender and no bruit. EXTREMITIES: He does have some edema bilaterally. No cyanosis or clubbin g. NEUROLOGIC: No asterixis. SKIN: He has changes of arterial insufficiency and venous insufficie ncy in his lower extremities bilaterally. LYMPH: No palpable lymphadenopathy or lymphedema. MUSCUL OSKELETAL: No effusions or tenderness. LABORATORY: Serum sodium 135, potassium 4.4, chloride 103, CO2 of 24, BUN 69, creatinine 1.6, glucos e 148. Serum creatinine has decreased from 2.2 on admission to 1.7 yesterday and 1.6 today. WBC 4.6 , hemoglobin 9.2 (was 9.2 yesterday and 9.6 on admission), hematocrit 30.2, platelet count 121,000 (d own from 142,000 on admission). INR is 1.24. Lactic acid has decreased from 2.6 down to 1.2. AST 1 8. Troponin 0.051. Urine showed a specific gravity of 1.014, pH 5, negative protein, trace blood, 5 0-180 hyaline casts consistent with low-flow state/volume depletion, urine sodium was 23, urine creat inine 79, urine osmolality 342. Influenza A and B were negative. Blood cultures x2 have been obtain ed and are negative at 36 hours. IMPRESSION: 1. Acute kidney injury, appears to be due to volume depletion. He has responded nicely to IV fluids . 2. Stage 3 chronic kidney disease. Baseline creatinine appears to be around 1.3 per his report. 3. Chronic immunosuppression, currently only on tacrolimus, he is not sure if he is taking mycopheno late, but he is for certain that he is taking prednisone. It does not sound like he has had any pred nisone for a couple of days at least. 4. Urinary retention with 800 cc of urine in his bladder prior to Mason catheter placement. 5. Volume depletion. RECOMMENDATIONS: 1. Continue IV fluids as is. 2. Will add some Flomax 0.4 mg daily. 3. We will add back some prednisone 10 mg a day for 3 days and then decrease back down to 5 mg a day as that is his outpatient dose. 4. We need to make sure that he is not taking mycophenolate, and I would add that back in if he were . 5. All questions were answered to the patient's satisfaction. Thank you for allowing me to participate in the care of your patient. If there are any questions, pl ease do not hesitate to contact us. We will be following along with you. /[id number]/MODL
[2017-10-11] MEDS: TAMSULOSIN HCL 0.4 MG CAP PO SCH (10:46)
--- NOTE | 2017-10-11 11:53 | PDPCPN ---
Palliative Care Progress Note Assessment/Plan: Referring provider: Dr Kingston Reason for consult: Complex medical decision making Symptom control HPI: Gerard Richard (Tom) is a 72 yo with PMH CHF, PVD, DM, kidney transplant and recent TVAR 09/12 with complications including UTI and c diff admitted to the hospital from [facility] for increased confusion and fatigue. Found to have sepsis from PNA vs UTI. Cardiology, ID, and renal consulted. Also with CLINT and sacral ulcer. Palliative care consulted for complex medical decision making. Met with Baldo at the bedside, he was very tired and did not want to participate much in the meeting. He stated he generally did not feel well and has some pain from his sacral ulcer which improved with positioning. Met with daughter Adri outside the room who shared her father has always been very ontop of his medical care as he always believed there was a pill or surgery to fix anything. She states he was not very active or very involved in making sure he was always eating right. She states he still had a lot of enjoyment from doing things like building old cars or going to [employer] with friends. She states prior to his surgery he was physically decompensated using a wheelchair and not able to walk a couple of blocks. She states the hope of the TVAR was to improve his health so he could have his natural kidney removed due to a mass on that kidney. She states he has not done very well and his quality of life has not recovered since his surgery. He has not been out of bed and has joked at times that he was "done with all of this". She states he more seriously stated last night that he was tired and didn't want to continue with all of this anymore. She states that is the first time he has said it to a medical person. Adri is very aware of his poor ability to recover and likely continued hospitalizations and decline. Reviewed his MOST form which was completed on admission to [facility] which states he wants comfort care only. Adri stated she feels he is at the end of his life and the focus should be on quality of life and not extending a poor quality of life. Discussed hospice care , Adri is interested in speaking to hospice about care back at [facility]. Assessment: Physical: - Pain: sacral ulcer - turn and reposition - tylenol PRN - tramadol PRN - weakness: - PT/OT as able - diarrhea: 2/2 c diff - on flagyl Emotional/psychological: some confusion. Support by his daughter Advanced Care Planning: Is patient decisional?: Yes Code Status: DNR/DNI MD GARCIA: Daughter Adri is MDPOA. Plan: Subjective: I dont feel well Objective: Social History: 2 daughters, 1 involved and local. Lives in [place]. 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 "Bachelor" for many years per daughter. Medication list reviewed ROS: General: fatigue, weakness, weight loss ENT: negative Resp: negative GI: poor appetite : staley MS: back pain from ulcer Skin: sacral ulcer Neuro: negative Psych: negative Functional assessment: PPS: 30% Functional status: dependent on ADLs, IADLs Vital Signs Temp Pulse Resp BP Pulse Ox 36.6 C 89 20 139/67 H 96 10/11/17 08:00 10/11/17 08:00 10/11/17 08:00 10/11/17 08:00 10/11/17 08:00 Laboratory Results 10/11/17 03:33 10/11/17 03:33 10/10/17 10/11/17 10/12/17 05:59 05:59 05:59 Intake Total 2075 2250 Output Total 1750 Balance 2075 500 PT 15.8 SEC (12.0-15.0) H 10/10/17 03:35 INR 1.24 (0.83-1.16) H 10/10/17 03:35 Physical Exam - Physical Exam General Appearance: alert, no apparent distress Respiratory: No respiratory distress, No accessory muscle use Skin: normal color, warm/dry Extremities: pedal edema Neuro/Psych: alert, oriented x 3 ICD10 Worksheet Patient Problems: Problems Problem Status Onset Bilateral pleural effusion Acute CHF (congestive heart failure) Acute Elevated troponin Acute Palliative care encounter Acute Renal insufficiency Acute Urinary retention Acute chronic disease mgmt/transitional Acute - ICD10 Problem Qualifiers (1) Palliative care encounter
--- NOTE | 2017-10-11 12:06 | WOCRNPDOC ---
WOCRN Advanced Assessment Note - Skin Integrity Problem, Advanced Assess Left Lateral Heel Dressing Type: Open to Air Site Measurement - Head-to-Toe Length X Width X Depth (cm): 3x3.5x0 Pressure Injury Stage: Deep Tissue Injury (DTI) Pressure Injury Present on Admit: Yes Skin Integrity Problem Comment: Present on admission pressure injury. Right heel intact and blanching without a pressure injury. Please offload both heels in heel boots at all times.
--- NOTE | 2017-10-11 12:51 | PCMIDPN ---
Assessment/Plan: # Fever,hypotension, AMS query infectious source. CT abd/pelvis without clear source, negative influenza, negative blood and urine cx to date. BP better. CXR without findings c/w PNA and no resp sx. Pressure ulcer without signs of infection. Doubt infection but because immune compromise 1 more day on antibiotics and dc if no source ID'd --empiric zosyn until blood cx neg 48hours, likely stop tomorrow --decreased dose of zosyn for CrCl, do not need high dose as low concern for PsA causing infection # Cdiff: flagyl originally planned through 10/08, but will leave for 1 week past Zosyn discontinuation for ppx # Renal transplant, Cr a bit better with hydration. on low dose Tac and pred meds zosyn 3.375gm IV q6 micro Blood 10/10 (2) NGTD UCx 10/11: pending Subjective: c/o sacral pain when lays on back. 1 loose BM today feels fatigued denies dysuria Objective: Vital Signs Temp Pulse Resp BP Pulse Ox 36.6 C 92 20 122/67 H 96 10/11/17 12:00 10/11/17 12:00 10/11/17 12:00 10/11/17 12:00 10/11/17 12:00 Laboratory Results 10/11/17 03:33 10/11/17 03:33 10/10/17 10/11/17 10/12/17 05:59 05:59 05:59 Intake Total 2075 2250 Output Total 1750 Balance 2075 500 - Physical Exam General Appearance: alert, obese EENT: pale conjunctiva, other (mouth stained pink/red) Respiratory: No respiratory distress, No accessory muscle use, No crackles, No wheezing Cardiac/Chest: regular rate, rhythm (distant heart sounds) Abdomen: normal bowel sounds, non-tender, soft, other (no RLQ pain, unable to palpate kidney) Skin: pallor, No rash Neuro/Psych: alert, normal mood/affect, oriented x 3 - Time Spent With Patient Time Spent with Patient: greater than 35 minutes (reviewed lab findings and no evidence of infection to date causing problems with patient and his daughter at bedside) Time Spent with Patient: Greater than 35 minutes spent on this patients care, greater than 50% of time spent counseling, educating, and coordinating care regarding the above mentioned plan. ICD10 Worksheet Patient Problems: Problems Problem Status Onset Bilateral pleural effusion Acute CHF (congestive heart failure) Acute Elevated troponin Acute Palliative care encounter Acute Renal insufficiency Acute Urinary retention Acute chronic disease mgmt/transitional Acute
[2017-10-11] MEDS: NS 1,000 ML IV SCH (13:10)
--- NOTE | 2017-10-11 13:25 | HOSPPROG ---
Hospitalist Progress Note Assessment/Plan: 72 yo male with MMP admitted from care home with fever and AMS. Started empirically on Zosyn, although infectious source unclear. Transiently developed hypotension (systolic 80s on 10/10) which improved with IVF challenge. Afebrile, no leukocytosis, no ongoing diarrhea FENA c/w 0.4, pre-renal Per his MOST form he has elected comfort measures only previously #?Sepsis, unclear source, ?Pneumonia vs ?UTI -No leukocytosis -CXR with no clear infiltrate -mild elevation of procalcitonin in setting of renal impairment #Hx of CHF, recent TAVR, small pericardial effusion -Intravascularly dry #Acute Renal Failure -unknown baseline #Immunosuppression #Hyponatremia, resolved #Kidney transplant #Recent C-Diff colitis, no active diarrhea -On Flagyl #DMII, NIDDM #cholelithiasis and thickened GB on CT. -RUQ with no e/o of cholecystitis -Negative hutchins's and negative exam #Thrombocytopenia #Coccygeal wound #Acute on chronic encephalopathy Plan: -Palliative care met with the pt and his daughter. The goal is to transition to hospice once the pt is medically optimized from his acute illnesses -Appreciate Cards, Pulm, and ID's assistance -Cont IVF at current rate for now, although this may be limited by his third spacing and Anasarca which is considerably worse than yesterday -Albumin PRN -Cont Zosyn empirically -Cont Tacrolimus -Stress dose of Prednisone -Wound care -Lovenox for DVT proph -DNR Subjective: not very talkative. Denies pain. Denies SOB. Says he feels fine. Objective: Vital Signs Temp Pulse Resp BP Pulse Ox 36.6 C 92 20 122/67 H 96 10/11/17 12:00 10/11/17 12:00 10/11/17 12:00 10/11/17 12:00 10/11/17 12:00 Laboratory Results 10/11/17 03:33 10/11/17 03:33 10/10/17 10/11/17 10/12/17 05:59 05:59 05:59 Intake Total 2075 2250 Output Total 1750 Balance 2075 500 PT 15.8 SEC (12.0-15.0) H 10/10/17 03:35 INR 1.24 (0.83-1.16) H 10/10/17 03:35 - Physical Exam Constitutional: no apparent distress, chronically ill appearing Eyes: PERRL Ears, Nose, Mouth, Throat: dry mucous membranes Cardiovascular: regular rate and rhythym, edema Respiratory: other (coarse) Gastrointestinal: normoactive bowel sounds Skin: warm Neurologic: No AAOx3 Psychiatric: encephalopathic, No interacting appropriately ICD10 Worksheet Patient Problems: Problems Problem Status Onset Bilateral pleural effusion Acute CHF (congestive heart failure) Acute Elevated troponin Acute Palliative care encounter Acute Renal insufficiency Acute Urinary retention Acute chronic disease mgmt/transitional Acute
--- NOTE | 2017-10-11 15:23 | ASMTCMCOM ---
CM Note CM Note Notes: Discussed pts case in morning rounds w/ Dr. Kingston and CHARIS Dumont. Palliative meeting today w/ daughter. Daughter is interested in talking to a hospice agency that is affiliated w/ [facility]. Referral made to [facility]. [facility] came in to speak w/ daughter and pt. Pt is uncertain if he is ready for hospice services at this time. CM will keep [facility] posted for d/c. Anticipate d/c for tomorrow back to [facility]. CM notified [facility]. CM met w/ daughter for dispo planning. Daughter reports that she is working w/ Adri at [facility] to complete LTC Medicaid application. CM to follow. Plan: [facility] Date Signed: 10/11/2017 03:22 PM Electronically Signed By:BARBARA Dailey
[2017-10-11] MEDS: PIPERACILLIN/TAZO 2.25 GM/DEX 50 ML IV SCH ×2 (18:07→23:59)
[2017-10-11] MEDS: QUEtiapine FUMARATE 50 MG TAB PO SCH (23:59)
[2017-10-12] MEDS: NYSTATIN SUSP 500000 UNIT/5 ML UDCUP PO SCH (05:27)
[2017-10-12] MEDS: metroNIDAZOLE 500 MG TAB PO SCH ×3 (05:27→22:07)
[2017-10-12] MEDS: PIPERACILLIN/TAZO 2.25 GM/DEX 50 ML IV SCH ×2 (05:27→12:47)
[2017-10-12] MEDS: traMADol 50 MG TAB PO PRN ×3 (07:41→22:07)
[2017-10-12] MEDS: TRIAMCINOLONE 0.025% 15 GM OINTTUBE TP SCH ×2 (07:44→22:08)
[2017-10-12] MEDS ORDERED: hydrALAZINE 20 MG/ML VIAL IVP PRN (08:49)
[2017-10-12 09:15] LABS: PLATELET COUNT 103 10^3/uL (150-400)
--- NOTE | 2017-10-12 09:54 | SOAPPROG ---
SOAP Progress Note Assessment/Plan: Assessment: CLINT on CKD 3: improved, Cr down to 1.4 with IVFs, baseline around 1.3. - No need for further IVFs. - Avoid hypotension and nephrotoxins. h/o renal transplant: pt states he takes Prograf, Cellcept and prednisone. - Will add Cellcept. - Continue prednisone 10mg for 3 days total, then resume 5mg daily. - Resume home meds on discharge. Urinary obstruction: pt with staley catheter, Flomax started. Thank you for the interesting consult. Pt likely to go home with hospice. Nephrology will sign off at this time, please call if you have any questions or concerns or if pt's disposition changes. Subjective: No acute events overnight. Pt notes that he is having some pain but is vague about where it is, possibly abdominal. He notes that he takes Cellcept at home. Objective: Vital Signs Temp Pulse Resp BP Pulse Ox 36.6 C 97 12 158/88 H 91 L 10/12/17 07:57 10/12/17 07:57 10/12/17 07:57 10/12/17 07:57 10/12/17 07:57 Laboratory Results 10/12/17 08:44 10/12/17 08:44 10/11/17 10/12/17 10/13/17 05:59 05:59 05:59 Intake Total 2250 1170 Output Total 1750 1200 Balance 500 -30 PT 15.8 SEC (12.0-15.0) H 10/10/17 03:35 INR 1.24 (0.83-1.16) H 10/10/17 03:35 General: alert and oriented, no acute distress Eyes: EOMI, PERRL OP: Clear CV: RRR Resp: nonlabored respirations Abd; Soft, ND Neuro; CN II-XII grossly intact, no asterixis Psych: cooperative, appropriate mood and affect ICD10 Worksheet Patient Problems: Problems Problem Status Onset Bilateral pleural effusion Acute CHF (congestive heart failure) Acute Elevated troponin Acute Palliative care encounter Acute Renal insufficiency Acute Urinary retention Acute chronic disease mgmt/transitional Acute
[2017-10-12] MEDS: MYCOPHENOLATE MOFETIL 250 MG CAP PO SCH ×2 (10:49→22:07)
[2017-10-12] MEDS: predniSONE 10 MG TAB PO SCH (10:49)
[2017-10-12] MEDS: TAMSULOSIN HCL 0.4 MG CAP PO SCH (10:49)
[2017-10-12] MEDS: ASPIRIN EC 81 MG TAB PO SCH (10:49)
[2017-10-12] MEDS: ENOXAPARIN 40 MG/0.4 ML SYR SC SCH (10:49)
[2017-10-12] MEDS: TACROLIMUS ANHYDROUS 0.5 MG CAP PO SCH (10:49)
--- NOTE | 2017-10-12 11:50 | HOSPPROG ---
Hospitalist Progress Note Assessment/Plan: 72 yo male with MMP admitted from care home with fever and AMS. Started empirically on Zosyn, although infectious source unclear. Transiently developed hypotension (systolic 80s on 10/10) which improved with IVF challenge. Afebrile, no leukocytosis, no ongoing diarrhea FENA c/w 0.4, pre-renal, Cr now at baseline 1.4 Per his MOST form he has elected comfort measures only previously #?Sepsis, transient hypotension, unclear source, ?Pneumonia vs ?UTI -No leukocytosis -CXR with no clear infiltrate -mild elevation of procalcitonin in setting of renal impairment -He is still on Zosyn, although this will likely be stopped by ID today #Hx of CHF, recent TAVR, small pericardial effusion #Acute Renal Failure -much improved with IVF. #Immunosuppression #Hyponatremia, resolved #Kidney transplant #Recent C-Diff colitis, no active diarrhea -On Flagyl #Urinary retention #DMII, NIDDM #cholelithiasis and thickened GB on CT. -RUQ with no e/o of cholecystitis -Negative hutchins's and negative exam #Thrombocytopenia #Coccygeal wound #Acute on chronic encephalopathy Plan: -Hospice care and goals are being clarified. He may go home on hospice today or tomorrow pending clarification of these goals -Nephrology has signed off -Much improved from a intravascular/renal perspective. Will keep off IVF -ID to likely stop abx today if no growth on cultures -BP much improved, treat with Hydrazine PRN. Restart Losartan tomorrow -No diuretics at this time -cont Flomax and staley. Will cont at discharge -Cont increase Prednisone dose -Cont all other meds -Wound care -Lovenox for DVT proph -DNR Dispo: pending clarification of hospice goals. Will likely observe overnight and plan for d/c to [facility] on hospice or w/o tomorrow Subjective: Feels better. More away. More coooperative. No CP or SOB. Objective: Vital Signs Temp Pulse Resp BP Pulse Ox 36.6 C 99 18 146/79 H 93 10/12/17 11:08 10/12/17 11:08 10/12/17 11:08 10/12/17 11:08 10/12/17 11:08 Microbiology 10/10/17 01:10 Urine Culture - Final Urine,Catheterized Laboratory Results 10/12/17 08:44 10/12/17 08:44 10/11/17 10/12/17 10/13/17 05:59 05:59 05:59 Intake Total 2250 1170 Output Total 1750 1200 Balance 500 -30 PT 15.8 SEC (12.0-15.0) H 10/10/17 03:35 INR 1.24 (0.83-1.16) H 10/10/17 03:35 - Physical Exam Constitutional: no apparent distress Eyes: PERRL Ears, Nose, Mouth, Throat: moist mucous membranes Cardiovascular: regular rate and rhythym Respiratory: no respiratory distress Gastrointestinal: normoactive bowel sounds Genitourinary: no bladder fullness Skin: warm Neurologic: No AAOx3 Psychiatric: interacting appropriately, not anxious, encephalopathic Lymph, Heme, Immunologic: No petechiae ICD10 Worksheet Patient Problems: Problems Problem Status Onset Bilateral pleural effusion Acute CHF (congestive heart failure) Acute Elevated troponin Acute Palliative care encounter Acute Renal insufficiency Acute Urinary retention Acute chronic disease mgmt/transitional Acute
--- NOTE | 2017-10-12 11:50 | PDPCPN ---
Palliative Care Progress Note Assessment/Plan: HPI: Gerard Richard (Tom) is a 72 yo with PMH CHF, PVD, DM, kidney transplant and recent TVAR 09/12 with complications including UTI and c diff admitted to the hospital from [facility] for increased confusion and fatigue. Found to have sepsis from PNA vs UTI. Cardiology, ID, and renal consulted. Also with CLINT and sacral ulcer. Palliative care consulted for complex medical decision making. Baldo seen this AM. He states he is feeling better today, had a good breakfast. He does wish everyone would stop poking and prodding him. He mostly wants to be left alone. When asked what his overall goals are he states he has no short or nursing home goals but if he remains in his current condition he would just "go ahead and ". He is not afraid of dying and does not see himself getting better but is also just taking each day as it comes. He is focused on feeling as good as possible. We talked about hospice care and that this is in line with his goals. He stated he is familiar with hospice and understands it is about helping someone have a good quality of life for whatever time he has. He stated he was waiting for his daughter to come before making any decisions. Assessment: Physical: - Pain: sacral ulcer - turn and reposition - tylenol PRN - tramadol PRN - weakness: - PT/OT as able - diarrhea: 2/2 c diff - on flagyl Emotional/psychological: some confusion. Support by his daughter Advanced Care Planning: Is patient decisional?: Yes Code Status: DNR/DNI POA: Daughter Adri is MDPOA. Plan: Goals are consistent with hospice care. He does not want to return to the hospital. He wants to focus on on quality of life and accepts he may not get better and . Subjective: I'm feeling much better today Objective: Vital Signs Temp Pulse Resp BP Pulse Ox 36.6 C 99 18 146/79 H 93 10/12/17 11:08 10/12/17 11:08 10/12/17 11:08 10/12/17 11:08 10/12/17 11:08 Microbiology 10/10/17 01:10 Urine Culture - Final Urine,Catheterized Laboratory Results 10/12/17 08:44 10/12/17 08:44 10/11/17 10/12/1710/13/18 05:59 05:59 05:59 Intake Total 2250 1170 Output Total 1750 1200 Balance 500 -30 PT 15.8 SEC (12.0-15.0) H 10/10/17 03:35 INR 1.24 (0.83-1.16) H 10/10/17 03:35 Physical Exam - Physical Exam General Appearance: alert, no apparent distress Respiratory: No respiratory distress, No accessory muscle use Skin: normal color, warm/dry Extremities: pedal edema Neuro/Psych: alert, oriented x 3 ICD10 Worksheet Patient Problems: Problems Problem Status Onset Bilateral pleural effusion Acute CHF (congestive heart failure) Acute Elevated troponin Acute Palliative care encounter Acute Renal insufficiency Acute Urinary retention Acute chronic disease mgmt/transitional Acute - ICD10 Problem Qualifiers (1) Palliative care encounter
--- NOTE | 2017-10-12 12:51 | SOAPPROG ---
SERVANDO Progress Note Assessment/Plan: Assessment: 1. Status post TAVR 2 hypotension 3. history of renal transplant Uhk-ouwycen-sqvghpwzh diabetes mellitus acute renal failure Obesity He is saying he wants comfort measures only. he is having no acute pain or problems right now. His TAVR seems to be functioning quite well. we would always worried about endocarditis but there is nothing to suggest that in his case so far. As he is heading toward comfort measures only and his valvular function is good he has no acute deterioration of cardiovascular status at this time. We will sign off if we can do anything to help please let us know Plan: 10/12/17 12:50 10/12/17 12:51 Subjective: no cp today no sob at rest. denies fever chills . Is feeling better. taking his medications and doing okay with that. Objective: Vital Signs Temp Pulse Resp BP Pulse Ox 36.6 C 99 18 146/79 H 93 10/12/17 11:08 10/12/17 11:08 10/12/17 11:08 10/12/17 11:08 10/12/17 11:08 Microbiology 10/10/17 01:10 Urine Culture - Final Urine,Catheterized Laboratory Results 10/12/17 08:44 10/12/17 08:44 10/11/17 10/12/17 10/13/17 05:59 05:59 05:59 Intake Total 2250 1170 Output Total 1750 1200 Balance 500 -30 PT 15.8 SEC (12.0-15.0) H 10/10/17 03:35 INR 1.24 (0.83-1.16) H 10/10/17 03:35 Physical Exam - Physical Exam General Appearance: alert, no apparent distress Neck: supple Respiratory: rhonchi, prolonged expiration Cardiac/Chest: regular rate, rhythm, edema, systolic murmur Abdomen: non-tender, soft Skin: warm/dry, pallor Extremities: non-tender Neuro/Psych: normal mood/affect ICD10 Worksheet Patient Problems: Problems Problem Status Onset Bilateral pleural effusion Acute CHF (congestive heart failure) Acute Elevated troponin Acute Palliative care encounter Acute Renal insufficiency Acute Urinary retention Acute chronic disease mgmt/transitional Acute
--- NOTE | 2017-10-12 14:26 | ASMTCMCOM ---
CM Note CM Note Notes: Discussed pts case in morning rounds w/ Dr. Kingston and CHARIS Gilliland. Osbaldoe d/c for tomorrow. CM met w/ daughter for dispo planning. The plan is to d/c to [facility]. [facility] will start ULTC-100 to have [employer] assess pt for LTC Medicaid. Pt and daughter will sign up for [facility] once LTC Medicaid has been approved. CM communicated this w/ [facility]. [facility] will work directly w/ [facility] and daughter. CM to follow. Plan: [facility] Date Signed: 10/12/2017 02:25 PM Electronically Signed By:BARBARA Dailey
[2017-10-12] MEDS: QUEtiapine FUMARATE 50 MG TAB PO SCH (22:07)
[2017-10-13] MEDS: traMADol 50 MG TAB PO PRN ×2 (06:04→12:40)
[2017-10-13] MEDS: metroNIDAZOLE 500 MG TAB PO SCH (06:04)
[2017-10-13] MEDS: TAMSULOSIN HCL 0.4 MG CAP PO SCH (08:29)
[2017-10-13] MEDS: predniSONE 10 MG TAB PO SCH (08:29)
[2017-10-13] MEDS: MYCOPHENOLATE MOFETIL 250 MG CAP PO SCH (08:29)
[2017-10-13] MEDS: TACROLIMUS ANHYDROUS 0.5 MG CAP PO SCH (08:29)
[2017-10-13] MEDS: ASPIRIN EC 81 MG TAB PO SCH (08:29)
[2017-10-13] MEDS: ENOXAPARIN 40 MG/0.4 ML SYR SC SCH (08:30)
[2017-10-13] MEDS: TRIAMCINOLONE 0.025% 15 GM OINTTUBE TP SCH (08:31)
--- NOTE | 2017-10-13 12:07 | PDIAF ---
- Diagnosis Diagnosis: acute renal failure Code Status: Do Not Resuscitate - Medication Management Discharge Medications: Medications to Continue on Transfer Acetaminophen [Tylenol 325mg (*)] 650 mg PO Q6H PRN 10/09/17 [Last Taken Unknown ] Aspirin EC [Aspirin EC 81 mg (*)] 81 mg PO DAILY 10/09/17 [Last Taken 10/09/17] Ipratropium/Albuterol [Duoneb (*)] 3 ml IH Q4H PRN 10/09/17 [Last Taken 10/06/17 ] Losartan Potassium [Cozaar 25 mg (*)] 25 mg PO DAILY 10/09/17 [Last Taken ] Ondansetron Odt [Zofran Odt 4 mg (*)] 4 mg PO Q4H PRN 10/09/17 [Last Taken Unknown] QUEtiapine FUMARATE [Seroquel 50 mg (*)] 50 mg PO HS 10/09/17 [Last Taken ] Simethicone [Mylicon] 80 mg PO Q6H PRN 10/09/17 [Last Taken Unknown] Tacrolimus 0.5 mg PO DAILY 10/09/17 [Last Taken 10/09/17] Triamcinolone 0.025% [Triamcinolone 0.025% Ointment (*)] 1 robert TP BID@ [Last Taken 10/09/17 08:00] traMADol [Ultram 50 mg (*)] 50 mg PO Q6H PRN 10/09/17 [Last Taken 10/09/17 14:21 ] Mycophenolate Mofetil [Cellcept] 500 mg PO BID #60 cap 10/13/17 [Last Taken Unknown] Tamsulosin HCl [Flomax 0.4 MG (*)] 0.4 mg PO DAILY #30 cap 10/13/17 [Last Taken Unknown] Vancomycin [Vancomycin (*)] 125 mg PO Q6 #40 cap 10/13/17 [Last Taken Unknown] predniSONE 5 mg PO DAILY #30 tab 10/13/17 [Last Taken Unknown] Discharge Medications: Refer to the Discharge Home Medication list for PRN reason. - Orders Services needed: Registered Nurse, Physical Therapy, Occupational Therapy Isolation Type: CDIFF Isolation Diet Recommendation: cardiac -low fat low salt Diet Texture: Regular Texture Diet - Follow Up Care Current Providers and Referrals: Patient,NotPresent [Unknown] - As per Instructions
[2017-10-13] MEDS ORDERED: VANCOMYCIN 125 MG/2.5 ML UDL PO SCH (12:15)
--- NOTE | 2017-10-13 12:21 | PDDCSUM ---
Discharge Summary Discharge Summary: Of note, this patient will be transitioning to hospice while at SNF. 72 yo male with MMP [facility] with fever and AMS. Started empirically on Zosyn, although infectious source unclear. Transiently developed hypotension (systolic 80s on 10/10) which improved with IVF challenge. Afebrile, no leukocytosis FENA c/w 0.4, pre-renal, Cr now at baseline 1.4 Per his MOST form he has elected comfort measures only previously. There is a plan to transition to hospice while at his [facility] ID consulted, no clear source of abx. They have been stopped. pending clinical course, he may need diuretics in the future. none have been ordered as he came in very dehydrated Cont Mason and Flomax. If no hospice is decided upon, consider referral to urology Renal and CV also have cleared the patient. He will need f/u with them if hospice is not decided upon Flagyl has been changed to vancomycin PO Cont to wear O2, 2L , this is his baseline DDx: #?Sepsis, no e/o at this time #Hx of CHF, recent TAVR, small pericardial effusion #Acute Renal Failure -much improved with IVF. #Immunosuppression #Hyponatremia, resolved #s/p Kidney transplant #Recent C-Diff colitis, no active diarrhea -On Flagyl #Urinary retention #DMII, NIDDM #cholelithiasis and thickened GB on CT. -RUQ with no e/o of cholecystitis -Negative hutchins's and negative exam #Thrombocytopenia #Coccygeal wound #Acute on chronic encephalopathy Exam: NAD ALERT, AWAKE RRR COARSE BS S/NT/ND NO LE EDEMA MEDS: SEE MED REC F/U: PER ABOVE TOTAL TIME SPENT ON D/C IS 35 MINS
[2017-10-13] MEDS: TEARS/DEXTRAN 70/HYPROMELLOSE 15 ML OPHT.BTL EACHEYE PRN (12:41)
[2017-10-13 15:19] VITALS: BP 152/85; PULSE 106; RESP 18; TEMP 97.9; O2SAT 93
--- NOTE | 2017-10-13 17:14 | ASDISCHSUM ---
Discharge Information Plan Status:SNF Medically Cleared to Leave:10/12/2017 Discharge Date:10/13/2017 02:18 PM D/C Disposition:[facility] Facility ADT D/C Disposition:[facility] Facility Projected Discharge Date:10/12/2017 11:00 AM Transportation at D/C:ALS/BLS Discharge Delay Reason: Follow-Up Date:10/12/2017 11:00 AM Discharge Slot: Final Diagnosis: Placement Information Referral Type:*Retirement/SNF Referral ID:[id number] Provider Name:[facility] Address 1:[address] [place], [place] [address]y Address 2: City:[place] Selection Factors: State:[place] Referral Type:Palliative Care Referral ID:[id number] Provider Name:Daksha Santillan ([facility]) Address 1:[address] [place] [address] Address 2:[facility] [address] City:[place] Selection Factors: State:[place] Patient Contact Information Contact Name:DEEPTI Relationship:Daughter Address:[address] Work Phone: City:[place] Alternate Phone: State/Zip Code:[place] [address] Email: Financial Information Financial Class: Primary Plan Desc:MEDICARE INPATIENT Primary Plan Number:[id number] Secondary Plan Desc: Secondary Plan Number: Assessment Information [facility] Initial CM Assessment Living Arrangements What is your living Answers: With Child(gracie) arrangement? Who do you live with? Type Of Residence What kind of residence do Answers: [facility] Facility you live in? Type of Residence Facility Name Notes: [facility] Discharge Plan Comments Coordination Status Comments Notes: Pt is a 72 y/o man admitted for fatigue and confusion for 1-2 days. Pt is a post TAVR after a recent hospitalization in [place]. Pt came to [place] to be closer to his daughter. Pt is currently rehabing at [facility]. Therapies have been ordered. Pt will most likely return to [facility]. CM to follow. Plan: [facility] Date Signed: 10/10/2017 10:03 AM Electronically Signed By:BARBARA Dailey [facility] Progress Note CM Note CM Note Notes: CM met w/ ronaldo Adri and discuss d/c POC. Adri would like pt to return back to [facility]. Adri reports that they are in the process of applying for LT Medicaid. Adri reports that the exterminator goal is to have pt at [facility]. XIANG spoke yvon/ Subha at [facility] and pt is able to return when medically stable. CM sent updates to [facility]. CM left a msg w/ Caitlyn, director social service at [facility] and inquired about LTC Medicaid application process. CM spoke aliyah Brady and she reports that Adri is in the process of completing LT Medicaid application. CM requested [employer] to assist in completing the LT Medicaid application. Palliative has been ordered. CM to follow. Date Signed: 10/10/2017 03:18 PM Electronically Signed By:BARBARA Dailey [facility] Progress Note CM Note CM Note Notes: Discussed pts case in morning rounds w/ Dr. Kingston and CHARIS Dumont. Palliative meeting today w/ daughter. Daughter is interested in talking to a hospice agency that is affiliated w/ [facility]. Referral made to [facility]. [facility] came in to speak w/ daughter and pt. Pt is uncertain if he is ready for hospice services at this time. CM will keep [facility] posted for d/c. Anticipate d/c for tomorrow back to [facility]. CM notified [facility]. CM met w/ daughter for dispo planning. Daughter reports that she is working w/ Adri at [facility] to complete [facility] Medicaid application. CM to follow. Plan: [facility] Date Signed: 10/11/2017 03:22 PM Electronically Signed By:BARBARA Dailey [facility] Progress Note CM Note CM Note Notes: Discussed pts case in morning rounds w/ Dr. Kingston and CHARIS Gilliland. Osbaldoe d/c for tomorrow. CM met w/ daughter for dispo planning. The plan is to d/c to [facility]. [facility] will start ULTC-100 to have [employer] assess pt for LT Medicaid. Pt and daughter will sign up for [facility] once [facility] Medicaid has been approved. CM communicated this w/ [facility] will work directly w/ [facility] and daughter. CM to follow. Plan: [facility] Date Signed: 10/12/2017 02:25 PM Electronically Signed By:BARBARA Dailey Case Management Discharge Plan Note Case Management Discharge Discharge Order Complete? Answers: Yes Patient to Obtain Answers: Other Notes: [facility] Medications Transportation Arranged Answers: [facility] Case Management Transport Answers: Yes Form Complete Faxed Final Orders Answers: Yes Agency/Facility Transfer Answers: Yes Report Printed & Faxed to Receiving Agency Family Notified Answers: Yes Notes: Adri [phone] Discharge Comments Notes: 10/13/2017 Case Management Note Met w/pt. Signed IM. Notified of transfer to [facility]. Pt in agreement. Notified [facility], Johnnyfrancine arranged [facility] transport via stretcher with O2. Pt has been bed bound for duration of hospital stay per RN. Notified daughter Adri of transfer, referred her to [facility] for information. Notified [facility] of d/c to [facility]. Faxed final orders to [facility] and [facility]. Date Signed: 10/13/2017 12:43 PM Electronically Signed By:Robyn Perez RN Intervention Information Intervention Type:*IM-Signed Date of Service:10/13/2017 12:37 PM Patient Type:Inpatient Staff Member:CHARIS Perez, Robyn Hours:0.25 Discipline: Severity: Comment:
== END 2017-10-13 14:18 | DRG 682 ==
LOC: F2W 21:27
PROVIDERS: ADMIT Family Medicine; ATTEND Family Medicine
DX: N17.9 Acute kidney failure, unspecified (principal); L89.153 Pressure ulcer of sacral region, stage 3; G93.49 Other encephalopathy; Z94.0 Kidney transplant status; I31.3 Pericardial effusion (noninflammatory); E87.1 Hypo-osmolality and hyponatremia; I11.0 Hypertensive heart disease with heart failure; I50.9 Heart failure, unspecified; E11.9 Type 2 diabetes mellitus without complications; I73.9 Peripheral vascular disease, unspecified; R33.9 Retention of urine, unspecified; K80.20 Calculus of gallbladder without cholecystitis without obstruction; D69.6 Thrombocytopenia, unspecified; Z95.3 Presence of xenogenic heart valve; Z87.440 Personal history of urinary (tract) infections; Z87.891 Personal history of nicotine dependence; L89.629 Pressure ulcer of left heel, unspecified stage
CPT/HCPCS: 80197-90; 82947-QW; J1650; J1940; J2405; J2543; J7512